=== PATIENT | female | born 1945 | race Caucasian/White ===

== ENCOUNTER 2020-08-12 22:24 | Observation (INO) ==
[2020-08-12 23:28] LABS: Bacteria,Urine Few per hpf (None-Few); Bilirubin,Urine Negative (Negative); Blood,Urine Small (Negative); Clarity,Urine Clear (Clear); Color,Urine Colorless (Yellow); Glucose,Urine (UA) 70 mg/dL (Normal); Ketones,Urine Negative (Negative); Leukocyte Esterase,Urine Negative (Negative); Nitrite,Urine Negative (Negative); Protein,Urine >=300 mg/dL (Neg-Trace); Specific Gravity,Urine 1.012 (1.010-1.025); Squamous Epithelial Cell,Urine Few per hpf (None-Few); Urobilinogen,Urine Normal (Normal)
[2020-08-13 00:44] LABS: Basophils # 0.1 K/mcL (0.0-0.2); Basophils % 0.4 %; Eosinophils # 0.2 K/mcL (0.0-0.6); Eosinophils % 1.1 %; Hematocrit 30.7 % (35.3-44.9); Hemoglobin 9.7 g/dL (11.5-15.4); Immature Granulocytes % 1.1 % (0-4); Lymphocytes # 1.8 K/mcL (0.6-4.6); Mean Corpuscular HGB Conc 31.6 g/dL (31.6-35.5); Mean Corpuscular Volume 98.1 fL (83.0-100.0); Mean Platelet Volume 9.2 fL (9.4-12.4); Monocytes # 1.7 K/mcL (0.0-1.3); Monocytes % 10.9 %; Platelet Count 264 K/mcL (140-400); Red Blood Count 3.13 M/mcL (3.82-4.97); Red Cell Distribution Width 13.4 % (11.5-14.5); Segmented Neutrophils % 75.5 %; White Blood Count 15.9 K/mcL (4.3-11.1)
[2020-08-13 00:54] LABS: Calcium 8.6 mg/dL (8.6-10.3); Potassium 5.4 mEq/L (3.5-5.1)
[2020-08-13] MEDS ORDERED: 0.9 % Sodium Chloride 500 ML IVC ONE (01:09)
[2020-08-13] MEDS ORDERED: cefTRIAXone 1,000 MG in Water for inj. (sterile) 10 ML IVP ONE (01:13)
[2020-08-13] MEDS ORDERED: *HR* Dextrose 50 % in Water (Vial) 50 ML VIAL IVP PRN ×2 (03:35→12:31)
[2020-08-13] MEDS ORDERED: Dextrose Gel 15 GM/37.5 ML TUBE PO PRN ×4 (03:35→12:31)
[2020-08-13] MEDS ORDERED: D5% in Water 1,000 ML IVC PRN ×2 (03:35→12:31)
[2020-08-13] MEDS ORDERED: hydrALAZINE 10 MG TABLET PO PRN ×2 (03:37→12:31)
[2020-08-13] MEDS ORDERED: Acetaminophen 325 MG TABLET PO PRN ×2 (03:38→12:31)
[2020-08-13] MEDS ORDERED: Naloxone 0.4 MG/ML INJ IVP PRN ×2 (03:38→12:31)
[2020-08-13] MEDS: 0.9 % Sodium Chloride 1,000 ML IVC SCH ×2 (05:45→13:34)
[2020-08-13] MEDS ORDERED: *HR* Heparin 5,000 UNIT/ML VIAL SQ SCH (06:00)
[2020-08-13] MEDS ORDERED: *HR* HYDROcodone/Acet 5/325 mg TABLET PO PRN ×2 (07:03→12:31)
[2020-08-13] MEDS: Insulin LISPRO 300 UNITS/3 ML VIAL SUBQ SCH ×3 (07:17→18:22)
[2020-08-13 07:28] LABS: INR 1.2; Prothrombin Time 13.3 Seconds (9.4-12.1)
[2020-08-13 07:31] LABS: Activated Partial Thrombo Time 27.5 Seconds (26.0-36.0)
[2020-08-13] MEDS: Gabapentin 100 MG CAPSULE PO SCH ×2 (07:51→07:56)
[2020-08-13 08:15] LABS: Estimated Average Glucose 128 mg/dl; Hemoglobin A1C 6.1 %
[2020-08-13] MEDS ORDERED: atenoloL 50 MG TABLET PO SCH (09:00)
[2020-08-13] MEDS ORDERED: hydrALAZINE 25 MG TABLET PO SCH (09:00)
[2020-08-13] MEDS ORDERED: amLODIPine 5 MG TABLET PO SCH (09:00)
[2020-08-13] MEDS ORDERED: Ondansetron 4 MG/2 ML VIAL ONE (09:19)
[2020-08-13] MEDS ORDERED: Lidocaine -MPF 2% 2 ML VIAL ONE (09:19)
[2020-08-13] MEDS ORDERED: *HR* FentaNYL (PF) 100 MCG/2 ML VIAL ONE (09:20)
[2020-08-13] MEDS ORDERED: *HR* Propofol 200 MG/20 ML VIAL IVP ONE (09:20)
[2020-08-13] MEDS ORDERED: Ketorolac 30 MG/ML VIAL ONE (09:31)
[2020-08-13 09:51] LABS: Adenovirus Not Detected (Not Detect); Bordetella Pertussis Not Detected (Not Detect); Chlamydophila pneumoniae Not Detected (Not Detect); Coronavirus 229E Not Detected (Not Detect); Coronavirus HKU1 Not Detected (Not Detect); Coronavirus NL63 Not Detected (Not Detect); Coronavirus OC43 Not Detected (Not Detect); Human Metapneumovirus Not Detected (Not Detect); Human Rhinovirus/Enterovirus Not Detected (Not Detect); Influenza A Subtype 2009 H1 Not Detected (Not Detect); Influenza B Not Detected (Not Detect); Mycoplasma pneumoniae Not Detected (Not Detect); Parainfluenza Virus 1 Not Detected (Not Detect); Parainfluenza Virus 2 Not Detected (Not Detect); Parainfluenza Virus 3 Not Detected (Not Detect); Parainfluenza Virus 4 Not Detected (Not Detect); Respiratory Syncytial Virus Not Detected (Not Detect); SARS-CoV-2 Not Detected (Not Detect)
[2020-08-13] MEDS ORDERED: Isovue-300 50ML VIAL ONE (10:08)
[2020-08-13] MEDS ORDERED: 0.9 % Sodium Chloride 1,000 ML IVC SCH (12:31)
[2020-08-13] MEDS: *HR* Heparin 5,000 UNIT/ML VIAL SQ SCH (18:22)
[2020-08-13] MEDS: hydrALAZINE 25 MG TABLET PO SCH (20:44)
[2020-08-13] MEDS ORDERED: ALPRAZolam 0.5 MG TABLET PO SCH (21:30)
[2020-08-14] MEDS: *HR* Heparin 5,000 UNIT/ML VIAL SQ SCH (04:50)
[2020-08-14 05:32] LABS: Basophils % 0.2 %; Eosinophils # 0.2 K/mcL (0.0-0.6); Eosinophils % 1.6 %; Hematocrit 27.3 % (35.3-44.9); Hemoglobin 9.1 g/dL (11.5-15.4); Immature Granulocytes % 0.9 % (0-4); Lymphocytes # 1.6 K/mcL (0.6-4.6); Lymphocytes % 13.7 %; Mean Corpuscular HGB Conc 33.3 g/dL (31.6-35.5); Mean Corpuscular Hemoglobin 31.8 pg (28.0-33.3); Mean Corpuscular Volume 95.5 fL (83.0-100.0); Mean Platelet Volume 9.3 fL (9.4-12.4); Monocytes # 1.2 K/mcL (0.0-1.3); Neutrophils # 8.7 K/mcL (1.6-8.9); Platelet Count 248 K/mcL (140-400); Red Blood Count 2.86 M/mcL (3.82-4.97); Red Cell Distribution Width 13.2 % (11.5-14.5); Segmented Neutrophils % 73.6 %; White Blood Count 11.9 K/mcL (4.3-11.1)
[2020-08-14 05:46] LABS: Calcium 8.4 mg/dL (8.6-10.3); Potassium 4.8 mEq/L (3.5-5.1)
[2020-08-14] MEDS: hydrALAZINE 25 MG TABLET PO SCH (07:55)
[2020-08-14] MEDS: Insulin LISPRO 300 UNITS/3 ML VIAL SUBQ SCH ×3 (07:57→16:14)
[2020-08-14] MEDS ORDERED: atenoloL 50 MG TABLET PO SCH (09:00)
[2020-08-14] MEDS ORDERED: amLODIPine 5 MG TABLET PO SCH (09:00)
[2020-08-14] MEDS ORDERED: Gabapentin 100 MG CAPSULE PO SCH (09:00)
[2020-08-14 11:58] VITALS: BP 176/62
[2020-08-14] MEDS ORDERED: hydrALAZINE 25 MG TABLET PO SCH (16:00)
[2020-08-14] MEDS ORDERED: cefTRIAXone 1,000 MG in Water for inj. (sterile) 10 ML IVP SCH (18:00)
[2020-08-14] MEDS ORDERED: Fluticasone Propionate Nasal 50 MCG/SPRAY BOTTLE NS SCH (21:00)
[2020-08-15] MEDS ORDERED: Aspirin Enteric Coated 81 MG Tablet PO SCH (09:00)
[2020-08-15] MEDS ORDERED: Loratadine 10 MG TABLET PO SCH (09:00)
== END 2020-08-14 16:21 | disposition home or self-care (01) ==
LOC: 2ANU 22:24 → EMEROOARM 22:24 → SUATTDRO 08-13 02:30 → 2ANU 08-13 03:15
PROVIDERS: ADMIT Internal Medicine; ATTEND General Practice

== ENCOUNTER 2020-11-28 11:05 | Inpatient (IN) ==
[2020-11-28 13:30] LABS: Basophils % 0.2 %; Hematocrit 33.7 % (35.3-44.9); Hemoglobin 11.2 g/dL (11.5-15.4); Immature Granulocytes % 1.7 % (0-4); Lymphocytes # 0.6 K/mcL (0.6-4.6); Lymphocytes % 6.9 %; Mean Corpuscular HGB Conc 33.2 g/dL (31.6-35.5); Mean Corpuscular Hemoglobin 31.8 pg (28.0-33.3); Mean Corpuscular Volume 95.7 fL (83.0-100.0); Mean Platelet Volume 9.5 fL (9.4-12.4); Monocytes # 0.7 K/mcL (0.0-1.3); Monocytes % 7.3 %; Neutrophils # 7.6 K/mcL (1.6-8.9); Platelet Count 159 K/mcL (140-400); Red Blood Count 3.52 M/mcL (3.82-4.97); Red Cell Distribution Width 12.9 % (11.5-14.5); Segmented Neutrophils % 83.9 %
[2020-11-28 13:37] LABS: VBG HCO3 16 mEq/L (21-27); VBG PCO2 36 mmHg (41-51); VBG PH 7.26 pH Units (7.32-7.42); VBG PO2 48 mmHg (25-50)
[2020-11-28 13:45] LABS: Amorphous Sediment,Urine Few per hpf (None-Few); Bacteria,Urine Few per hpf (None-Few); Bilirubin,Urine Negative (Negative); Blood,Urine Small (Negative); Clarity,Urine Turbid (Clear); Color,Urine Light-Yellow (Yellow); Glucose,Urine (UA) 30 mg/dL (Normal); Ketones,Urine Negative (Negative); Leukocyte Esterase,Urine Negative (Negative); Nitrite,Urine Negative (Negative); Protein,Urine >=600 mg/dL (Neg-Trace); RBC,Urine 0-3 per hpf (0-3); Specific Gravity,Urine 1.014 (1.010-1.025); Squamous Epithelial Cell,Urine Few per hpf (None-Few); Urobilinogen,Urine Normal (Normal)
[2020-11-28 14:06] LABS: Albumin 3.7 g/dL (3.5-5.7); Albumin/Globulin Ratio 1.3 (1.1-2.2); Bilirubin,Direct 0.1 mg/dL (0.0-0.2); Bilirubin,Indirect 0.1 mg/dL (0.0-1.0); Bilirubin,Total 0.2 mg/dL (0.3-1.0); Calcium 7.7 mg/dL (8.6-10.3); Globulin 2.8 g/dL (2.4-3.5); Total Protein 6.5 g/dL (6.4-8.9); Troponin I 0.05 ng/mL (< 0.04)
[2020-11-28] MEDS ORDERED: Ipratropium/Albuterol Neb 3 ML IH ONE (14:47)
[2020-11-28] MEDS ORDERED: Naloxone 0.4 MG/ML INJ IVP PRN (15:36)
[2020-11-28] MEDS ORDERED: Ondansetron 4 MG/2 ML VIAL IVP PRN (15:36)
[2020-11-28] MEDS ORDERED: D5% in Water 1,000 ML IVC PRN (16:12)
[2020-11-28] MEDS ORDERED: Dextrose Gel 15 GM/37.5 ML TUBE PO PRN ×2 (16:12)
[2020-11-28] MEDS ORDERED: *HR* Dextrose 50 % in Water (Vial) 50 ML VIAL IVP PRN (16:12)
[2020-11-28] MEDS ORDERED: Sodium Bicarbonate 150 MEQ in Water for inj. (sterile) 1,000 ML IVC SCH (16:15)
[2020-11-28] MEDS: Azithromycin 500 MG in 0.9 % Sodium Chloride 250 ML IVPB SCH (16:50)
[2020-11-28 18:00] LABS: Estimated Average Glucose 154 mg/dl
[2020-11-28] MEDS: Insulin LISPRO 300 UNITS/3 ML VIAL SUBQ SCH (18:38)
[2020-11-28] MEDS: *HR* Heparin 5,000 UNIT/ML VIAL SQ SCH (22:18)
[2020-11-29 01:49] LABS: Basophils % 0.2 %; Hematocrit 30.5 % (35.3-44.9); Immature Granulocytes % 2.4 % (0-4); Lymphocytes # 0.4 K/mcL (0.6-4.6); Lymphocytes % 6.7 %; Mean Corpuscular HGB Conc 32.8 g/dL (31.6-35.5); Mean Corpuscular Hemoglobin 31.7 pg (28.0-33.3); Mean Corpuscular Volume 96.8 fL (83.0-100.0); Mean Platelet Volume 9.6 fL (9.4-12.4); Monocytes # 0.3 K/mcL (0.0-1.3); Monocytes % 4.7 %; Neutrophils # 5.1 K/mcL (1.6-8.9); Platelet Count 145 K/mcL (140-400); Red Blood Count 3.15 M/mcL (3.82-4.97); Red Cell Distribution Width 12.8 % (11.5-14.5)
[2020-11-29 02:11] LABS: Calcium 7.2 mg/dL (8.6-10.3); Phosphorous 6.4 mg/dL (2.7-4.5); Potassium 4.5 mEq/L (3.5-5.1)
[2020-11-29] MEDS: *HR* Heparin 5,000 UNIT/ML VIAL SQ SCH ×2 (05:40→17:20)
[2020-11-29] MEDS: Insulin LISPRO 300 UNITS/3 ML VIAL SUBQ SCH ×3 (08:47→17:41)
[2020-11-29] MEDS: cefTRIAXone 1,000 MG in Water for inj. (sterile) 10 ML IVP SCH (08:48)
[2020-11-29 10:26] LABS: Sodium, Urine 57.8 mEq/L
[2020-11-29 10:45] LABS: Protein/Creatinine Ratio,Urine 11.13 mg/mg (0.00-0.20)
[2020-11-29] MEDS: Magnesium Oxide 400 MG TABLET PO SCH ×2 (11:56→19:40)
[2020-11-29] MEDS: *HR* SitaGLIPtin 25 MG TABLET PO SCH (13:44)
[2020-11-29] MEDS ORDERED: Acetaminophen 325 MG TABLET PO PRN (16:29)
[2020-11-29] MEDS: Azithromycin 500 MG in 0.9 % Sodium Chloride 250 ML IVPB SCH (17:21)
[2020-11-29] MEDS: hydrALAZINE 25 MG TABLET PO SCH (19:40)
[2020-11-29] MEDS: ALPRAZolam 0.5 MG TABLET PO PRN (19:46)
[2020-11-30] MEDS: *HR* Heparin 5,000 UNIT/ML VIAL SQ SCH ×2 (05:18→18:04)
[2020-11-30 07:48] LABS: Hematocrit 30.2 % (35.3-44.9); Hemoglobin 9.8 g/dL (11.5-15.4); Mean Corpuscular HGB Conc 32.5 g/dL (31.6-35.5); Mean Corpuscular Hemoglobin 31.2 pg (28.0-33.3); Mean Corpuscular Volume 96.2 fL (83.0-100.0); Mean Platelet Volume 9.4 fL (9.4-12.4); Platelet Count 180 K/mcL (140-400); Red Blood Count 3.14 M/mcL (3.82-4.97); Red Cell Distribution Width 12.7 % (11.5-14.5); White Blood Count 8.6 K/mcL (4.3-11.1)
[2020-11-30 08:23] LABS: Magnesium 2.6 mg/dL (1.6-2.6); Phosphorous 5.7 mg/dL (2.7-4.5)
[2020-11-30] MEDS: Aspirin Enteric Coated 81 MG Tablet PO SCH (09:07)
[2020-11-30] MEDS: ALPRAZolam 0.5 MG TABLET PO PRN ×2 (09:07→20:14)
[2020-11-30] MEDS: Magnesium Oxide 400 MG TABLET PO SCH ×2 (09:07→20:14)
[2020-11-30] MEDS: Benzonatate 100 MG CAPSULE PO PRN ×2 (09:07→20:14)
[2020-11-30] MEDS: *HR* SitaGLIPtin 25 MG TABLET PO SCH (09:07)
[2020-11-30] MEDS: amLODIPine 5 MG TABLET PO SCH (09:08)
[2020-11-30] MEDS: hydrALAZINE 25 MG TABLET PO SCH ×2 (09:08→20:15)
[2020-11-30] MEDS: atenoloL 50 MG TABLET PO SCH (09:08)
[2020-11-30] MEDS: cefTRIAXone 1,000 MG in Water for inj. (sterile) 10 ML IVP SCH (09:09)
[2020-11-30] MEDS: Insulin LISPRO 300 UNITS/3 ML VIAL SUBQ SCH ×3 (09:11→17:45)
[2020-11-30] MEDS: Azithromycin 500 MG in 0.9 % Sodium Chloride 250 ML IVPB SCH (15:33)
[2020-11-30] MEDS ORDERED: Furosemide 40 MG/4 ML VIAL IVP ONE (17:36)
[2020-12-01] MEDS ORDERED: *HR* LORazepam 2 MG/ML VIAL ONE (03:20)
[2020-12-01] MEDS ORDERED: *HR* LORazepam 2 MG/ML VIAL IVP ONE ×2 (03:24→22:22)
[2020-12-01 03:32] LABS: ABG Base Excess -5 mEq/L (-2 to 3); ABG HCO3 20 mEq/L (21-27); ABG Oxygen Saturation 83 % (95-98); ABG PCO2 34 mmHg (35-45); ABG PH 7.37 pH Units (7.32-7.45); ABG PO2 49 mmHg (85-104); ABG TCO2 21 mEq/L (20-26); Blood Gas Modality BiLevel; Blood Gas VT 450 cc
[2020-12-01] MEDS ORDERED: Furosemide 20 MG/2 ML VIAL IVP ONE (03:34)
[2020-12-01] MEDS: *HR* Heparin 5,000 UNIT/ML VIAL SQ SCH ×3 (05:03→22:19)
[2020-12-01 07:03] LABS: BUN/Creatinine Ratio 17 (6-26); Blood Urea Nitrogen 61 mg/dL (8-23); Calcium 8.9 mg/dL (8.6-10.3); Carbon Dioxide 24 mEq/L (23-29); Chloride 100 mEq/L (98-107); Glucose 192 mg/dL (70-105); Osmolality,Calculated 304 (280-300); Potassium 4.1 mEq/L (3.5-5.1); Sodium 136 mEq/L (136-145); eGFR For African Americans 15 (> 60); eGFR For Non-African Americans 12 (> 60)
[2020-12-01] MEDS: hydrALAZINE 25 MG TABLET PO SCH ×2 (09:30→21:04)
[2020-12-01] MEDS: Aspirin Enteric Coated 81 MG Tablet PO SCH (09:30)
[2020-12-01] MEDS: cefTRIAXone 1,000 MG in Water for inj. (sterile) 10 ML IVP SCH (09:30)
[2020-12-01] MEDS: amLODIPine 5 MG TABLET PO SCH (09:30)
[2020-12-01] MEDS: atenoloL 50 MG TABLET PO SCH (09:30)
[2020-12-01] MEDS: Insulin LISPRO 300 UNITS/3 ML VIAL SUBQ SCH ×3 (09:30→16:43)
[2020-12-01 12:06] LABS: C-Reactive Protein 100 mg/L (Less than 10); Ferritin > 1500 ng/mL (10-120)
[2020-12-01] MEDS ORDERED: Dexamethasone Sodium Phos/PF 10 MG/ML VIAL IVP ONE (15:22)
[2020-12-01 17:45] LABS: Hematocrit 30.9 % (35.3-44.9); Hemoglobin 10.2 g/dL (11.5-15.4); Mean Corpuscular Hemoglobin 31.7 pg (28.0-33.3); Mean Platelet Volume 9.6 fL (9.4-12.4); Platelet Count 201 K/mcL (140-400); Red Blood Count 3.22 M/mcL (3.82-4.97); Red Cell Distribution Width 12.6 % (11.5-14.5); White Blood Count 11.8 K/mcL (4.3-11.1)
[2020-12-01 18:04] LABS: Albumin 2.9 g/dL (3.5-5.7); Albumin/Globulin Ratio 0.9 (1.1-2.2); Bilirubin,Indirect 0.2 mg/dL (0.0-1.0); Bilirubin,Total 0.2 mg/dL (0.3-1.0); Globulin 3.4 g/dL (2.4-3.5); Total Protein 6.3 g/dL (6.4-8.9)
[2020-12-01] MEDS: *HR* SitaGLIPtin 25 MG TABLET PO SCH (19:29)
[2020-12-01] MEDS ORDERED: TOCILIZUMAB 810 MG in 0.9 % Sodium Chloride 100 ML IVPB ONE (19:30)
[2020-12-02] MEDS: Insulin LISPRO 300 UNITS/3 ML VIAL SUBQ SCH ×4 (00:29→17:38)
[2020-12-02] MEDS ORDERED: *HR* LORazepam 2 MG/ML VIAL IVP ONE (02:31)
[2020-12-02] MEDS: *HR* Heparin 5,000 UNIT/ML VIAL SQ SCH ×3 (05:28→22:33)
[2020-12-02] MEDS: Dexamethasone Sodium Phos/PF 10 MG/ML VIAL IVP SCH (07:55)
[2020-12-02 08:52] LABS: Hematocrit 34.3 % (35.3-44.9); Hemoglobin 11.4 g/dL (11.5-15.4); Mean Corpuscular HGB Conc 33.2 g/dL (31.6-35.5); Mean Corpuscular Hemoglobin 31.5 pg (28.0-33.3); Mean Corpuscular Volume 94.8 fL (83.0-100.0); Mean Platelet Volume 9.4 fL (9.4-12.4); Nucleated Red Blood Cells 0.3 /100 WBC (0); Platelet Count 238 K/mcL (140-400); Red Blood Count 3.62 M/mcL (3.82-4.97); Red Cell Distribution Width 12.5 % (11.5-14.5); White Blood Count 10.4 K/mcL (4.3-11.1)
[2020-12-02 09:07] LABS: Albumin 3.2 g/dL (3.5-5.7); Albumin/Globulin Ratio 0.9 (1.1-2.2); Bilirubin,Indirect 0.2 mg/dL (0.0-1.0); Bilirubin,Total 0.2 mg/dL (0.3-1.0); Globulin 3.4 g/dL (2.4-3.5); Potassium 4.3 mEq/L (3.5-5.1); Total Protein 6.6 g/dL (6.4-8.9)
[2020-12-02 09:21] LABS: Lymphocytes # 0.6 K/mcL (0.6-4.6); Monocytes # 0.3 K/mcL (0.0-1.3); Neutrophils # 9.4 K/mcL (1.6-8.9)
[2020-12-02 09:22] LABS: Platelet Estimate Normal (Normal)
[2020-12-02] MEDS: atenoloL 50 MG TABLET PO SCH (11:05)
[2020-12-02] MEDS: hydrALAZINE 25 MG TABLET PO SCH ×2 (11:05→22:27)
[2020-12-02] MEDS: Aspirin Enteric Coated 81 MG Tablet PO SCH (11:05)
[2020-12-02] MEDS: amLODIPine 5 MG TABLET PO SCH (11:05)
[2020-12-02] MEDS: Albumin 25% 25gram/100mL 25 GM/100 ML IV.SOLN IVPB SCH (17:38)
[2020-12-02] MEDS: Acetaminophen 325 MG TABLET PO PRN (22:24)
[2020-12-02] MEDS: ALPRAZolam 0.5 MG TABLET PO PRN (22:26)
[2020-12-03] MEDS: Albumin 25% 25gram/100mL 25 GM/100 ML IV.SOLN IVPB SCH ×3 (00:53→16:35)
[2020-12-03] MEDS: Insulin LISPRO 300 UNITS/3 ML VIAL SUBQ SCH ×4 (01:08→18:21)
[2020-12-03] MEDS: *HR* Heparin 5,000 UNIT/ML VIAL SQ SCH ×3 (07:00→21:21)
[2020-12-03] MEDS: Dexamethasone Sodium Phos/PF 10 MG/ML VIAL IVP SCH (07:56)
[2020-12-03] MEDS: Aspirin Enteric Coated 81 MG Tablet PO SCH (07:57)
[2020-12-03] MEDS: hydrALAZINE 25 MG TABLET PO SCH ×2 (07:57→21:20)
[2020-12-03] MEDS: Acetaminophen 325 MG TABLET PO PRN ×2 (07:57→21:20)
[2020-12-03] MEDS: amLODIPine 5 MG TABLET PO SCH (07:57)
[2020-12-03] MEDS: atenoloL 50 MG TABLET PO SCH (07:58)
[2020-12-03 09:54] LABS: Potassium 4.2 mEq/L (3.5-5.1)
[2020-12-03 11:21] LABS: Calcium 8.9 mg/dL (8.6-10.3)
[2020-12-03] MEDS: ALPRAZolam 0.5 MG TABLET PO PRN (21:20)
[2020-12-03] MEDS ORDERED: *HR* LORazepam 2 MG/ML VIAL IVP STA (23:49)
[2020-12-04] MEDS: Insulin LISPRO 300 UNITS/3 ML VIAL SUBQ SCH ×4 (00:42→17:52)
[2020-12-04 07:09] LABS: Calcium 9.2 mg/dL (8.6-10.3); Potassium 4.7 mEq/L (3.5-5.1)
[2020-12-04] MEDS: Aspirin Enteric Coated 81 MG Tablet PO SCH (08:19)
[2020-12-04] MEDS: *HR* Heparin 5,000 UNIT/ML VIAL SQ SCH ×3 (08:19→22:08)
[2020-12-04] MEDS: hydrALAZINE 25 MG TABLET PO SCH ×3 (08:20→20:12)
[2020-12-04] MEDS: amLODIPine 5 MG TABLET PO SCH (08:20)
[2020-12-04] MEDS: atenoloL 50 MG TABLET PO SCH (08:20)
[2020-12-04] MEDS: Dexamethasone Sodium Phos/PF 10 MG/ML VIAL IVP SCH (08:33)
[2020-12-04] MEDS: Haloperidol Lactate 5 MG/ML VIAL IVP PRN ×2 (14:10→22:11)
[2020-12-04] MEDS: Insulin DETEMIR 100 UNIT/ML X5UNITS SUBQ SCH (20:12)
[2020-12-05] MEDS: Insulin LISPRO 300 UNITS/3 ML VIAL SUBQ SCH ×5 (02:24→23:49)
[2020-12-05] MEDS: Haloperidol Lactate 5 MG/ML VIAL IVP PRN ×3 (04:27→22:21)
[2020-12-05 05:51] LABS: Hematocrit 33.7 % (35.3-44.9); Hemoglobin 11.3 g/dL (11.5-15.4); Lymphocytes # 0.5 K/mcL (0.6-4.6); Mean Corpuscular HGB Conc 33.5 g/dL (31.6-35.5); Mean Corpuscular Hemoglobin 31.8 pg (28.0-33.3); Mean Corpuscular Volume 94.9 fL (83.0-100.0); Mean Platelet Volume 9.7 fL (9.4-12.4); Nucleated Red Blood Cells 0.1 /100 WBC (0); Platelet Count 265 K/mcL (140-400); Red Blood Count 3.55 M/mcL (3.82-4.97); Red Cell Distribution Width 12.4 % (11.5-14.5)
[2020-12-05 06:03] LABS: Fibrinogen 388 mg/dL (169-393)
[2020-12-05 06:08] LABS: D-Dimer 6639 ng/mLFEU (0-500)
[2020-12-05 06:09] LABS: Calcium 9.1 mg/dL (8.6-10.3); Potassium 4.2 mEq/L (3.5-5.1)
[2020-12-05 06:10] LABS: Alanine Aminotransferase 13 Units/L (7-52); Albumin/Globulin Ratio 1.5 (1.1-2.2); Alkaline Phosphatase 77 Units/L (34-104); Aspartate Amino Transferase 35 Units/L (13-39); Bilirubin,Direct 0.1 mg/dL (0.0-0.2); Bilirubin,Indirect 0.3 mg/dL (0.0-1.0); Bilirubin,Total 0.4 mg/dL (0.3-1.0); Globulin 2.7 g/dL (2.4-3.5); Lactate Dehydrogenase 890 Units/L (140-271); Magnesium 2.7 mg/dL (1.6-2.6); Phosphorous 5.3 mg/dL (2.7-4.5); Total Protein 6.7 g/dL (6.4-8.9)
[2020-12-05] MEDS: *HR* Heparin 5,000 UNIT/ML VIAL SQ SCH ×3 (06:19→21:12)
[2020-12-05 06:30] LABS: Ferritin > 1500 ng/mL (10-120); White Blood Count 23.2 K/mcL (4.3-11.1)
[2020-12-05 07:02] LABS: Anisocytosis 1+ (Not Present); Monocytes # 0.9 K/mcL (0.0-1.3); Neutrophils # 21.8 K/mcL (1.6-8.9); Platelet Estimate Normal (Normal)
[2020-12-05] MEDS: atenoloL 50 MG TABLET PO SCH (08:47)
[2020-12-05] MEDS: Aspirin Enteric Coated 81 MG Tablet PO SCH (08:47)
[2020-12-05] MEDS: amLODIPine 5 MG TABLET PO SCH (08:47)
[2020-12-05] MEDS: hydrALAZINE 25 MG TABLET PO SCH ×3 (08:47→20:59)
[2020-12-05] MEDS: Dexamethasone Sodium Phos/PF 10 MG/ML VIAL IVP SCH (08:57)
[2020-12-05] MEDS: Insulin DETEMIR 100 UNIT/ML X5UNITS SUBQ SCH (21:13)
[2020-12-06 03:38] LABS: Basophils % 0.4 %; Hemoglobin 12.2 g/dL (11.5-15.4)
[2020-12-06 03:39] LABS: Basophils # 0.1 K/mcL (0.0-0.2); Hematocrit 36.4 % (35.3-44.9); Immature Granulocytes % 4.9 % (0-4); Lymphocytes # 0.5 K/mcL (0.6-4.6); Lymphocytes % 1.8 %; Mean Corpuscular HGB Conc 33.5 g/dL (31.6-35.5); Mean Corpuscular Volume 95.5 fL (83.0-100.0); Mean Platelet Volume 9.4 fL (9.4-12.4); Monocytes # 1.2 K/mcL (0.0-1.3); Monocytes % 4.8 %; Neutrophils # 22.3 K/mcL (1.6-8.9); Platelet Count 248 K/mcL (140-400); Red Blood Count 3.81 M/mcL (3.82-4.97); Red Cell Distribution Width 12.6 % (11.5-14.5); Segmented Neutrophils % 88.1 %; White Blood Count 25.3 K/mcL (4.3-11.1)
[2020-12-06 03:59] LABS: Calcium 9.4 mg/dL (8.6-10.3); Magnesium 2.7 mg/dL (1.6-2.6); Phosphorous 4.6 mg/dL (2.7-4.5)
[2020-12-06] MEDS: *HR* Heparin 5,000 UNIT/ML VIAL SQ SCH ×3 (05:55→20:17)
[2020-12-06] MEDS: Haloperidol Lactate 5 MG/ML VIAL IVP PRN (05:55)
[2020-12-06] MEDS: Insulin LISPRO 300 UNITS/3 ML VIAL SUBQ SCH ×4 (06:04→23:33)
[2020-12-06] MEDS ORDERED: Fluticasone Propionate Nasal 50 MCG/SPRAY BOTTLE NS PRN (07:49)
[2020-12-06] MEDS ORDERED: D5% in Water 500 ML IVC SCH (08:00)
[2020-12-06] MEDS: atenoloL 50 MG TABLET PO SCH (09:09)
[2020-12-06] MEDS: amLODIPine 5 MG TABLET PO SCH (09:09)
[2020-12-06] MEDS: Dexamethasone Sodium Phos/PF 10 MG/ML VIAL IVP SCH (09:09)
[2020-12-06] MEDS: hydrALAZINE 25 MG TABLET PO SCH ×3 (09:09→20:17)
[2020-12-06] MEDS: Aspirin Enteric Coated 81 MG Tablet PO SCH (09:09)
[2020-12-06] MEDS: Insulin DETEMIR 100 UNIT/ML X5UNITS SUBQ SCH (20:33)
[2020-12-07] MEDS: Haloperidol Lactate 5 MG/ML VIAL IVP PRN (00:13)
[2020-12-07] MEDS: *HR* Heparin 5,000 UNIT/ML VIAL SQ SCH ×3 (06:26→21:30)
[2020-12-07 06:46] LABS: Basophils % 0.4 %; Hemoglobin 11.7 g/dL (11.5-15.4); Lymphocytes % 2.9 %; Monocytes % 4.7 %; Platelet Count 203 K/mcL (140-400); Red Cell Distribution Width 12.6 % (11.5-14.5)
[2020-12-07 06:48] LABS: Basophils # 0.1 K/mcL (0.0-0.2); Hematocrit 34.5 % (35.3-44.9); Immature Granulocytes % 5.3 % (0-4); Lymphocytes # 0.8 K/mcL (0.6-4.6); Mean Corpuscular HGB Conc 33.9 g/dL (31.6-35.5); Mean Corpuscular Hemoglobin 32.3 pg (28.0-33.3); Mean Corpuscular Volume 95.3 fL (83.0-100.0); Mean Platelet Volume 10.2 fL (9.4-12.4); Monocytes # 1.3 K/mcL (0.0-1.3); Neutrophils # 23.9 K/mcL (1.6-8.9); Red Blood Count 3.62 M/mcL (3.82-4.97); Segmented Neutrophils % 86.7 %; White Blood Count 27.6 K/mcL (4.3-11.1)
[2020-12-07 06:49] LABS: Blood Urea Nitrogen > 130 mg/dL (8-23); Calcium 9.7 mg/dL (8.6-10.3); Carbon Dioxide 20 mEq/L (23-29); Chloride 108 mEq/L (98-107); Glucose 151 mg/dL (70-105); Magnesium 2.8 mg/dL (1.6-2.6); Phosphorous 5.5 mg/dL (2.7-4.5); Potassium 4.6 mEq/L (3.5-5.1); Sodium 143 mEq/L (136-145); eGFR For African Americans 13 (> 60); eGFR For Non-African Americans 10 (> 60)
[2020-12-07] MEDS: Insulin LISPRO 300 UNITS/3 ML VIAL SUBQ SCH ×3 (06:52→18:07)
[2020-12-07] MEDS: atenoloL 50 MG TABLET PO SCH (08:45)
[2020-12-07] MEDS: Aspirin Enteric Coated 81 MG Tablet PO SCH (08:45)
[2020-12-07] MEDS: hydrALAZINE 25 MG TABLET PO SCH ×3 (08:45→21:30)
[2020-12-07] MEDS: amLODIPine 5 MG TABLET PO SCH (08:46)
[2020-12-07] MEDS: Dexamethasone Sodium Phos/PF 10 MG/ML VIAL IVP SCH (08:46)
[2020-12-07] MEDS: ALPRAZolam 0.5 MG TABLET PO PRN (11:34)
[2020-12-07] MEDS: Acetaminophen 325 MG TABLET PO PRN (11:34)
[2020-12-07] MEDS: Sodium Bicarbonate 75 MEQ in 0.45 % Sodium Chloride 1,000 ML IVC SCH (11:41)
[2020-12-07 17:01] LABS: Bacteria,Urine Few per hpf (None-Few); Bilirubin,Urine Negative (Negative); Blood,Urine Large (Negative); Clarity,Urine Ex.Turbid (Clear); Color,Urine Light-Orange (Yellow); Glucose,Urine (UA) 150 mg/dL (Normal); Ketones,Urine Negative (Negative); Leukocyte Esterase,Urine Trace (Negative); Nitrite,Urine Negative (Negative); Protein,Urine >=300 mg/dL (Neg-Trace); RBC,Urine TNTC per hpf (0-3); Urobilinogen,Urine Normal (Normal)
[2020-12-07] MEDS: Insulin DETEMIR 100 UNIT/ML X5UNITS SUBQ SCH (21:30)
[2020-12-08] MEDS: Insulin LISPRO 300 UNITS/3 ML VIAL SUBQ SCH ×4 (00:54→13:23)
[2020-12-08] MEDS: Sodium Bicarbonate 75 MEQ in 0.45 % Sodium Chloride 1,000 ML IVC SCH (02:40)
[2020-12-08 04:43] LABS: Basophils % 0.3 %; Hemoglobin 11.2 g/dL (11.5-15.4); Lymphocytes % 1.9 %; Mean Corpuscular Volume 97.4 fL (83.0-100.0); Nucleated Red Blood Cells 0.1 /100 WBC (0)
[2020-12-08 04:44] LABS: Basophils # 0.1 K/mcL (0.0-0.2); Hematocrit 33.7 % (35.3-44.9); Immature Granulocytes % 5.2 % (0-4); Lymphocytes # 0.7 K/mcL (0.6-4.6); Mean Corpuscular HGB Conc 33.2 g/dL (31.6-35.5); Mean Corpuscular Hemoglobin 32.4 pg (28.0-33.3); Mean Platelet Volume 10.1 fL (9.4-12.4); Monocytes # 1.7 K/mcL (0.0-1.3); Monocytes % 4.9 %; Platelet Count 200 K/mcL (140-400); Red Blood Count 3.46 M/mcL (3.82-4.97); Red Cell Distribution Width 12.6 % (11.5-14.5); Segmented Neutrophils % 87.7 %
[2020-12-08 04:45] LABS: Neutrophils # 30.4 K/mcL (1.6-8.9)
[2020-12-08 04:48] LABS: White Blood Count 34.7 K/mcL (4.3-11.1)
[2020-12-08 04:56] LABS: Fibrinogen 198 mg/dL (169-393)
[2020-12-08 04:58] LABS: D-Dimer 6236 ng/mLFEU (0-500)
[2020-12-08 05:04] LABS: Magnesium 2.7 mg/dL (1.6-2.6); Phosphorous 8.1 mg/dL (2.7-4.5)
[2020-12-08 05:07] LABS: Blood Urea Nitrogen > 130 mg/dL (8-23); Calcium 8.5 mg/dL (8.6-10.3); Carbon Dioxide 21 mEq/L (23-29); Chloride 105 mEq/L (98-107); Glucose 210 mg/dL (70-105); Potassium 5.1 mEq/L (3.5-5.1); Sodium 140 mEq/L (136-145); eGFR For African Americans 12 (> 60); eGFR For Non-African Americans 10 (> 60)
[2020-12-08 05:36] LABS: Platelet Estimate Normal (Normal)
[2020-12-08] MEDS: *HR* Heparin 5,000 UNIT/ML VIAL SQ SCH (06:22)
[2020-12-08] MEDS ORDERED: Piperacillin/Tazobactam 3.375 GM in 0.9 % Sodium Chloride Mini Bag 100 ML IVPB SCH (07:43)
[2020-12-08] MEDS: Dexamethasone Sodium Phos/PF 10 MG/ML VIAL IVP SCH (08:24)
[2020-12-08] MEDS: Aspirin Enteric Coated 81 MG Tablet PO SCH (09:04)
[2020-12-08] MEDS: hydrALAZINE 25 MG TABLET PO SCH (09:04)
[2020-12-08] MEDS: amLODIPine 5 MG TABLET PO SCH (09:05)
[2020-12-08] MEDS: atenoloL 50 MG TABLET PO SCH (09:05)
[2020-12-08] MEDS ORDERED: Pantoprazole 40 MG VIAL IVP SCH (09:30)
[2020-12-08] MEDS ORDERED: 0.9 % Sodium Chloride 250 ML IVC PRN (09:53)
[2020-12-08] MEDS ORDERED: *HR* Heparin 10,000 UNIT/10 ML VIAL IV PRN (09:53)
[2020-12-08 09:55] LABS: Hemoglobin 10.9 g/dL (11.5-15.4); Mean Corpuscular Hemoglobin 31.8 pg (28.0-33.3); Red Blood Count 3.43 M/mcL (3.82-4.97); Red Cell Distribution Width 12.6 % (11.5-14.5)
[2020-12-08 09:56] LABS: Hematocrit 33.8 % (35.3-44.9); Mean Corpuscular HGB Conc 32.2 g/dL (31.6-35.5); Mean Corpuscular Volume 98.5 fL (83.0-100.0); Mean Platelet Volume 10.4 fL (9.4-12.4); Platelet Count 231 K/mcL (140-400)
[2020-12-08] MEDS ORDERED: 0.9 % Sodium Chloride 1,000 ML PRIME SCH (10:00)
[2020-12-08 10:06] LABS: White Blood Count 39.4 K/mcL (4.3-11.1)
[2020-12-08 11:52] VITALS: PULSE 62
[2020-12-08] MEDS ORDERED: 0.9 % Sodium Chloride 500 ML IV ONE (11:52)
[2020-12-08] MEDS ORDERED: 0.9 % Sodium Chloride 500 ML IVC ONE (11:53)
[2020-12-08 12:16] VITALS: BP 76/42; TEMP 96; O2SAT 89
[2020-12-08] MEDS ORDERED: Ringers Solution, Lactated 1,000 ML IVC ONE (12:24)
[2020-12-08] MEDS ORDERED: Ringers Solution, Lactated 1,000 ML ONE (12:27)
[2020-12-08] MEDS ORDERED: Norepinephrine 4 MG/254 ML IV.SOLN IVC SCH (12:30)
[2020-12-08] MEDS ORDERED: 0.9 % Sodium Chloride 250 ML IVC SCH (12:30)
[2020-12-08] MEDS ORDERED: Vancomycin 1,250 MG/262.5 ML IV.SOLN IVPB ONE (13:00)
[2020-12-08 13:14] LABS: Hematocrit 34.1 % (35.3-44.9); Hemoglobin 10.5 g/dL (11.5-15.4)
[2020-12-08] MEDS ORDERED: *HR* FentaNYL (PF) 100 MCG/2 ML VIAL IVP PRN (13:34)
[2020-12-08] MEDS ORDERED: *HR* LORazepam 2 MG/ML VIAL IVP PRN (13:35)
[2020-12-08] MEDS ORDERED: Glycopyrrolate 0.2 MG/ML VIAL IVP PRN (13:39)
[2020-12-08 14:41] LABS: Hepatitis B Surface Antibody < 3.10 mIU/mL
[2020-12-08 14:52] LABS: Hepatitis B Surface Antigen Nonreactive (Nonreactive)
== END 2020-12-08 15:55 | disposition expired | DRG 177 ==
LOC: EMEROOARM 11:05 → 3BNU 11:05 → 2NENU 11-30 14:51 → SUATTDRO 11-30 14:52
PROVIDERS: ADMIT Internal Medicine; ATTEND Internal Medicine